=== PATIENT | female | born 1965 | race Caucasian/White ===

== ENCOUNTER → 2017-04-30 | Outpatient (CLI) | payer OTHER, BC ==
[~2017-04-30] MED LIST: AMBIEN 10 MG TA10 MG PO; BACLOFEN 10MG T10 MG PO; DIAZEPAM 5 MG5 M1 PO; GILENYA0.5 MG PO; MACROBID 100 M100 M1 PO; NUVIGIL PO; WELLBUTRIN XL150 M1 PO
== END ==
LOC: RAD 01:28
DX: Z12.31 Encounter for screening mammogram for malignant neoplasm of breast (principal)

== ENCOUNTER → 2018-06-12 | Outpatient (CLI) | payer OTHER, BC | LOC: RAD 01:12 | DX: Z12.31 Encounter for screening mammogram for malignant neoplasm of breast (principal) ==

== ENCOUNTER → 2019-06-19 | Outpatient (CLI) | payer OTHER, BC | LOC: RAD 01:51 | DX: Z12.31 Encounter for screening mammogram for malignant neoplasm of breast (principal) ==

== ENCOUNTER → 2020-06-30 | Outpatient (CLI) | payer OTHER, BC | LOC: BC 06-16 15:24 | PROVIDERS: ATTEND Obstetrics & Gynecology | DX: Z12.31 Encounter for screening mammogram for malignant neoplasm of breast (principal); N64.89 Other specified disorders of breast ==